=== PATIENT | male | born 1990 | race Caucasian/White ===

== ENCOUNTER 2021-06-29 21:21 | Emergency (ER) | payer MEDICARE, OTHER ==
[~2021-06-29] VITALS: Ht 188 cm; Wt 101.4 kg
[~2021-06-29 21:21] MED LIST: FLUO-177 PO; NALT50TA PO; OLAN5TAB30 PO
[2021-06-29] MEDS ORDERED: SODIUM BICARBONATE [ADULT] 8.4% 50 MEQ/50 ML SYRINGE IVP ONE (21:27)
[2021-06-29] MEDS ORDERED: EPINEPHrine 1:10,000 [1 MG/10 ML] SYRINGE IVP ONE (21:27)
[2021-06-29] MEDS ORDERED: 0.9% SODIUM CHLORIDE 10 ML SYRINGE IVP ONE (21:27)
[2021-06-29] MEDS ORDERED: CALCIUM CHLORIDE 100 MG/ML 10 ML SYRINGE IVP ONE (21:27)
[2021-06-29] MEDS ORDERED: ATROPINE SULFATE 0.1 MG/ML 10 ML SYRINGE IVP ONE (21:27)
[2021-06-29] MEDS ORDERED: NOREPINEPHRINE 4 MG/D5%-WATER 250 ML IV ONE (21:41)
[2021-06-29 21:57] VITALS: BP 160/96
[2021-06-29 22:06] LABS: GLUCOMETER DEV NAME(LOC) ERT.5; GLUCOSE,POINT OF CARE 171 MG/DL (70-110)
== END 2021-06-30 05:39 ==
LOC: EMS 21:26
DX: I46.9 Cardiac arrest, cause unspecified (principal); R00.1 Bradycardia, unspecified
CPT/HCPCS: 36680; 82962; 92950; 99285; J0171; J0461; J3490 ×3; 99291